=== PATIENT | male | born 1970 | race Caucasian/White ===

== ENCOUNTER 2020-09-05 14:56 | Emergency (ER) | payer MEDICARE, OTHER ==
[~2020-09-05] VITALS: Ht 162.6 cm; Wt 76.2 kg
[2020-09-05] MEDS ORDERED: NAPR500 PO (18:00)
[2020-09-05] MEDS ORDERED: CEPH500 PO (18:29)
== END 2020-09-05 18:43 | disposition home or self-care (01) ==
LOC: ER 14:56
DX: L03.116 Cellulitis of left lower limb (principal); Z88.6 Allergy status to analgesic agent; Z88.0 Allergy status to penicillin
CPT/HCPCS: 93971; 99283-25; A9270

== ENCOUNTER 2022-02-27 12:40 | Day surgery (SDC) | payer MEDICARE, OTHER ==
[~2022-02-27] VITALS: Ht 165.1 cm; Wt 80.4 kg
[~2022-02-27 12:40] MED LIST: CEPH500 PO; NAPR500 PO
[2022-02-27] MEDS ORDERED: PANT40 (13:15)
[2022-02-27] MEDS ORDERED: Crestor5 MG (13:16)
== END 2022-02-27 16:45 | disposition home or self-care (01) ==
LOC: ORSCSDS 12:40
PROVIDERS: Internal Medicine Gastroenterology
PROC: 0DBM8ZX Excision of Descending Colon, Via Natural or Artificial Opening Endoscopic, Diagnostic (ICD-10-PCS; principal; 2022-02-27 14:15)
PROC: 0DBN8ZX Excision of Sigmoid Colon, Via Natural or Artificial Opening Endoscopic, Diagnostic (ICD-10-PCS; principal; 2022-02-27 14:15)
PROC: 0DB78ZX Excision of Stomach, Pylorus, Via Natural or Artificial Opening Endoscopic, Diagnostic (ICD-10-PCS; principal; 2022-02-27 14:15)
PROC: 0DBP8ZX Excision of Rectum, Via Natural or Artificial Opening Endoscopic, Diagnostic (ICD-10-PCS; principal; 2022-02-27 14:15)
PROC: 0DBL8ZX Excision of Transverse Colon, Via Natural or Artificial Opening Endoscopic, Diagnostic (ICD-10-PCS; principal; 2022-02-27 14:15)
PROC: 0DB98ZX Excision of Duodenum, Via Natural or Artificial Opening Endoscopic, Diagnostic (ICD-10-PCS; principal; 2022-02-27 14:15)
DX: R10.13 Epigastric pain (principal); Z87.11 Personal history of peptic ulcer disease; K29.70 Gastritis, unspecified, without bleeding; B96.81 Helicobacter pylori [H. pylori] as the cause of diseases classified elsewhere; K63.5 Polyp of colon; D12.3 Benign neoplasm of transverse colon; K57.30 Diverticulosis of large intestine without perforation or abscess without bleeding; E11.9 Type 2 diabetes mellitus without complications; J45.909 Unspecified asthma, uncomplicated; Z79.899 Other long term (current) drug therapy; Z79.82 Long term (current) use of aspirin; F17.210 Nicotine dependence, cigarettes, uncomplicated; Z86.73 Personal history of transient ischemic attack (TIA), and cerebral infarction without residual deficits
CPT/HCPCS: 82947; 88305; 88342; J2704; J7120

== ENCOUNTER 2022-08-19 17:18 | Emergency (ER) | payer MEDICARE, OTHER ==
[~2022-08-19] VITALS: Ht 165.1 cm; Wt 86.2 kg
[~2022-08-19 17:18] MED LIST changes: +Crestor5 MG; +PANT40
[2022-08-19 17:29] VITALS: BP 131/82
[2022-08-19] MEDS ORDERED: CODACE30 PO (18:24)
== END 2022-08-19 18:58 | disposition home or self-care (01) ==
LOC: ER 17:18
DX: S52.002A Unspecified fracture of upper end of left ulna, initial encounter for closed fracture (principal); S42.002A Fracture of unspecified part of left clavicle, initial encounter for closed fracture; W18.30XA Fall on same level, unspecified, initial encounter; Z88.0 Allergy status to penicillin; F17.210 Nicotine dependence, cigarettes, uncomplicated
CPT/HCPCS: 29105; 73030; 73080; 99283-25; A9270